=== PATIENT | male | born 1980 | race Caucasian/White ===

== ENCOUNTER 2019-12-26 20:06 | Emergency (ER) | payer OTHER ==
[2019-12-26] MEDS ORDERED: NORCO 5/325MG TABLET (BULK FOR ED) ONE (21:40)
[2019-12-26] MEDS ORDERED: LIDOCAINE 4% CREAM 5GM (LMX4) ONE (21:40)
[2019-12-26] MEDS ORDERED: NORCO 5/325MG TABLET (BULK FOR ED) As Ordered ONE (21:41)
[2019-12-26] MEDS ORDERED: LIDOCAINE 4% CREAM 5GM (LMX4) As Ordered ONE (21:42)
== END 2019-12-26 21:45 | disposition home or self-care (01) ==
LOC: M ED 20:06
DX: S49.91XA Unspecified injury of right shoulder and upper arm, initial encounter (principal); W01.0XXA Fall on same level from slipping, tripping and stumbling without subsequent striking against object, initial encounter; Y92.9 Unspecified place or not applicable